=== PATIENT | female | born 1980 | race African-American/Black ===

== ENCOUNTER 2017-02-28 19:55 | Emergency (ER) | payer OTHER ==
[~2017-02-28] VITALS: Ht 188 cm; Wt 77.1 kg
[2017-02-28 20:25] VITALS: BP 165/99
[2017-02-28] MEDS ORDERED: IBUPROFEN 600 MG TAB PO ONE (23:15)
== END 2017-02-28 23:44 | disposition home or self-care (01) ==
LOC: ER 19:55
DX: K04.7 Periapical abscess without sinus (principal); J45.909 Unspecified asthma, uncomplicated; Z88.8 Allergy status to other drugs, medicaments and biological substances